=== PATIENT | female | born 1995 | race Caucasian/White ===

== ENCOUNTER 2016-08-07 01:00 | Inpatient (IN) | payer BC ==
[2016-08-07] MEDS: ELECTROLYTE-148 SOLN 1,000 ML IV SCH ×3 (02:00→15:00)
--- NOTE | 2016-08-07 02:17 | HP ---
Past Medical History - Primary Care Physician PCP:: Chelo Ortiz - Admission Chief Complaint: 21 yo @ 39wks with +LOF, clear at 12:30am, +FM, -VB, +ctx History Source: Patient Limitations to Obtaining History: No Limitations - Past Medical History ...: 2 ...Para: 0 ...Term: 0 ...: 0 ...Spon : 0 ...Induced : 0 ...LMP: 11/08/15 ... Weeks Gestation by Dates: 39 ...EDC by Dates: 08/14/16 - Past Surgical History Past Surgical History: Yes: None Hx Myomectomy: No Hx Transabdominal Cerclage: No - Smoking History Smoking history: Never smoked Have you smoked in the past 12 months: No - Alcohol/Substance Use Hx Alcohol Use: No History of Substance Use: reports: None - Social History Usual Living Arrangement: Yes: With Spouse History of Recent Travel: No Home Medications - Allergies Allergies/Adverse Reactions: Allergies Allergy/AdvReac Type Severity Reaction Status Date / Time No Known Allergies Allergy Verified 08/07/16 03:51 - Home Medications Home Medications: Ambulatory Orders One Tablet 1 tab PO DAILY 08/07/16 Review of Systems - Review of Systems Constitutional: reports: No Symptoms Neck: reports: No Symptoms Cardiovascular: reports: No Symptoms Respiratory: reports: No Symptoms Gastrointestinal: reports: No Symptoms Genitourinary: reports: No Symptoms Breasts: reports: No Symptoms Reported Musculoskeletal: reports: No Symptoms Integumentary: reports: No Symptoms Neurological: reports: No Symptoms Endocrine: reports: No Symptoms Hematology/Lymphatic: reports: No Symptoms Psychiatric: reports: No Symptoms Pain Intensity: 4 Physical Exam - Maternity Vital Signs: Vital Signs Temperature 98.4 F 08/07/16 01:00 Pulse Rate 92 H 08/07/16 01:00 Respiratory Rate 20 08/07/16 01:00 Blood Pressure 117/71 08/07/16 01:00 O2 Sat by Pulse Oximetry (%) Constitutional: Yes: Well Nourished Neck: Yes: WNL Cardiovascular: Yes: WNL Lungs: Clear to auscultation Breast(s): Yes: WNL - Abdominal Exam/OB Fundal Height: 37 Number of Fetuses: Single Presentation: Vertex Contractions: Yes Regularity: Regular Intensity: Mild Monitor Mode: External Heart Rate (range): 130 Heart Rate Location: [facility] Category: I Accelerations: Uniform Decelerations: None - Vaginal Exam/OB Vaginal Bleediing: No Speculum Exam: No Dilatation (cm): 1-2 Effacement (%): 50% Amniotic Membrane Status: Ruptured Nitrazine Test: Positive Amniotic Fluid: Yes: Clear Presentation: Vertex/Position Station: -3 - Physical Exam Musculoskeletal: Yes: WNL Extremities: Yes: WNL Edema: No Integumentary: Yes: WNL ...Motor Strength: WNL Psychiatric: Yes: WNL Assessment/Plan 21yo P0 @ 39wks PROM in latent labor MF status reasuring Admit to L&D Labs, Pain management as needed Start Pitocin induction
[2016-08-07 02:56] LABS: BASOPHIL 0.3 % (0-2.0); EOSINOPHIL 1.1 % (0-4.5); MCHC 34.6 g/dl (32.0-36.0); MEAN CELL VOLUME 92.7 fl (80-96); MEAN PLT VOLUME 8.8 fl (7.5-11.1); NEUTROPHILS 73.6 % (42.8-82.8); PLATELET COUNT 196 K/MM3 (134-434); RDW 12.8 % (11.6-15.6); WHITE BLOOD COUNT 13.6 K/mm3 (4.0-10.0)
[2016-08-07 03:01] VITALS: BMI 26.6
[2016-08-07 03:10] LABS: INR 0.92 (0.82-1.09); PROTHROMBIN TIME (PATIENT) 10.1 SEC (9.98-11.88)
[2016-08-07 03:12] LABS: ACTIVATED PTT 25.8 SECONDS (26.9-34.4)
[2016-08-07 03:17] LABS: CALCIUM 8.6 mg/dL (8.5-10.1); CREATININE 0.4 mg/dL (0.55-1.02)
[2016-08-07] MEDS ORDERED: OXYTOCIN 15 UNITS/ LR 250 ML 250 ML IVPB SCH (03:30)
[2016-08-07] MEDS ORDERED: BUTORPHANOL TARTRATE 1 MG/ML VIAL IVPUSH ONE (05:44)
[2016-08-07] MEDS ORDERED: PROMETHAZINE HCL 25 MG/1 ML VIAL IM ONE (05:44)
[2016-08-07] MEDS ORDERED: TUBERCULIN PPD 5 TU/0.1ML SYRINGE (IN PATIENT USE ONLY) ID ONE (09:00)
[2016-08-07] MEDS ORDERED: FENTANYL/BUPIVACAINE/NS/PF - PCEA - 50 ML DISP.SYRIN EP SCH (13:45)
--- NOTE | 2016-08-07 13:45 | PN ---
Progress Note, Labor Vaginal Exam #1 Labor Exam Date: 08/07/16 Labor Exam Time: 12:00 Heart Rate (range): 130 mod varriability, + acels, no decels Dilatation: 3 Effacement (%): 60 Amniotic Membrane Status: Ruptured Presentation: Vertex/Position Station: -2 Remarks: 21 yo P0 n@ 39 wks with PROM IOL on 5mU/min of Pitocin desiring Epidural, requested MF status reassuring Afibrile continue IOL
--- NOTE | 2016-08-07 19:20 | PN ---
Progress Note, Labor Vaginal Exam #2 Labor Exam Date: 08/07/16 Labor Exam Time: 06:45 Heart Rate (range): 130' mod varriability, + accels, -decels Dilatation: 3-4 cm Effacement (%): 80% Amniotic Membrane Status: Ruptured (18hr) Presentation: Vertex/Position Station: +1 Remarks: 21yo P0 @ 39wks with prolonged PROM desiring Top off Antibiotic prophylaxis as per hospital policy MF status reassuring, Afibrile cont Pitocin induction
[2016-08-07] MEDS ORDERED: AMPICILLIN - 2 GM in SODIUM CHLORIDE 100 ML IVPB ONE (20:19)
--- NOTE | 2016-08-07 22:20 | PN ---
Progress Note, Labor Vaginal Exam #3 Labor Exam Date: 08/07/16 Labor Exam Time: 22:00 Heart Rate (range): 130's, + scalp stimulation, + acells Dilatation: 5-6cm Effacement (%): 90% Amniotic Membrane Status: Ruptured Presentation: Vertex/Position Station: 0 Remarks: 21yo P0 @ 39wks PROM IOL now in labor Category 1 HR Comfortable with epidural adequate labor progress currently cont monitoring
[2016-08-08] MEDS ORDERED: AMPICILLIN - 1 GM in SODIUM CHLORIDE 100 ML IVPB SCH (00:19)
--- NOTE | 2016-08-08 00:37 | PN ---
Delivery - Delivery Vaginal Delivery: No Problems Type of Anesthesia: Epidural Episiotomy/Laceration: None EBL (cc): 300 Delivery, Single - Stages of Labor Date 1st Stage Initiatied: 08/08/16 Time 1st Stage Initiated: 18:35 Date 2nd Stage Initiated: 08/08/16 Time 2nd Stage Initiated: 23:40 Date of Delivery: 08/08/16 Time of Delivery: 00:16 Date Placenta Delivered: 08/08/16 Time Placenta Delivered: 00:20 Placenta: Yes: Spontaneous - Condition of Infant Nail Setter/International Logistics Manager Present: No Gender: Male Position: Left, OA - 1 Minute Total Score: 6 5 Minutes Total Score: 9 - Feeding Plan Initial Plan: Elected not to breastfeed exclusively throughout hospitalization Benefits of Exclusively reinforced: Yes Remarks - Remarks Remarks: Uncomplicated Head and shoulder delivery
[2016-08-08] MEDS ORDERED: WITCH HAZEL 50% (TUCKS) 40 PAD/JAR PAD TP PRN (00:59)
[2016-08-08] MEDS ORDERED: METHYLERGONOVINE MALEATE 0.2 MG/1 ML AMP IM PRN (00:59)
[2016-08-08] MEDS ORDERED: ACETAMINOPHEN 325 MG TABLET (FP) PO PRN (00:59)
[2016-08-08] MEDS ORDERED: BENZOCAINE 20% 57 GM BOTTLE TP PRN (00:59)
[2016-08-08] MEDS ORDERED: BENZOCAINE 28 GM HEMORRHOIDAL OINTMENT TP PRN (00:59)
[2016-08-08] MEDS ORDERED: BISACODYL 10 MG SUPP.RECT RC PRN (00:59)
[2016-08-08] MEDS ORDERED: IBUPROFEN 600 MG TABLET (FP) PO PRN (00:59)
[2016-08-08] MEDS ORDERED: D5W-LR W/ 20 UNITS OXYTOCIN 1,000 ML IV SCH (01:00)
[2016-08-08 07:03] LABS: BASOPHIL 0.7 % (0-2.0); EOSINOPHIL 0.1 % (0-4.5); MCH 32.3 pg (25.7-33.7); MCHC 34.5 g/dl (32.0-36.0); MEAN CELL VOLUME 93.8 fl (80-96); MEAN PLT VOLUME 8.2 fl (7.5-11.1); NEUTROPHILS 83.5 % (42.8-82.8); PLATELET COUNT 184 K/MM3 (134-434); RDW 12.8 % (11.6-15.6); WHITE BLOOD COUNT 19.1 K/mm3 (4.0-10.0)
[2016-08-08] MEDS ORDERED: oxyCODONE HCL 5 MG TABLET PO ONE (08:15)
[2016-08-08] MEDS: FERROUS SO4 325 MG TABLET (FP) PO SCH ×2 (09:00→21:16)
[2016-08-08] MEDS: PRENATAL VITAMINS W/ FOLIC ACID TABLET (FP) PO SCH (09:00)
[2016-08-08] MEDS: ELECTROLYTE-148 SOLN 1,000 ML IV SCH (19:45)
[2016-08-09 07:21] LABS: BASOPHIL 0.4 % (0-2.0); EOSINOPHIL 2.1 % (0-4.5); MCHC 34.3 g/dl (32.0-36.0); MEAN CELL VOLUME 93.4 fl (80-96); MEAN PLT VOLUME 7.8 fl (7.5-11.1); NEUTROPHILS 76.1 % (42.8-82.8); PLATELET COUNT 179 K/MM3 (134-434); RDW 12.8 % (11.6-15.6); WHITE BLOOD COUNT 12.5 K/mm3 (4.0-10.0)
--- NOTE | 2016-08-09 07:53 | PN ---
Post Progress Note - Subjective Subjective: 21 yo P1 now, s/p , PPD# 1 no complains voiding, ambulating, tolarating PO Type of Delivery: Vital Signs: Vital Signs Temperature 98.3 F 08/09/16 07:30 Pulse Rate 75 08/09/16 07:30 Respiratory Rate 18 08/09/16 07:30 Blood Pressure 105/58 08/09/16 07:30 O2 Sat by Pulse Oximetry (%) 99 08/07/16 23:45 Breast Exam: Yes: Soft Uterus: Yes: Fundus Firm Abdomen/GI: Yes: Abdomen soft Lochia: Yes: Rubra Lochia, amount: Small Extremities: Yes: Calves non-tender Perineum: Yes: Intact Activity: Ambulating - Labs Labs: CBC WBC 12.5 K/mm3 (4.0-10.0) H D 08/09/16 06:45 RBC 3.22 M/mm3 (3.60-5.2) L 08/09/16 06:45 Hgb 10.3 GM/dL (10.7-15.3) L 08/09/16 06:45 Hct 30.1 % (32.4-45.2) L 08/09/16 06:45 MCV 93.4 fl (80-96) 08/09/16 06:45 MCHC 34.3 g/dl (32.0-36.0) 08/09/16 06:45 RDW 12.8 % (11.6-15.6) 08/09/16 06:45 Plt Count 179 K/MM3 (134-434) 08/09/16 06:45 MPV 7.8 fl (7.5-11.1) 08/09/16 06:45 Neutrophils % 76.1 % (42.8-82.8) 08/09/16 06:45 Lymphocytes % 13.4 % (8-40) D 08/09/16 06:45 Monocytes % 8.0 % (3.8-10.2) 08/09/16 06:45 Eosinophils % 2.1 % (0-4.5) D 08/09/16 06:45 Basophils % 0.4 % (0-2.0) 08/09/16 06:45 Assessment/Plan 21yo P 1, s/p VSS, Afibrile doing well Baby circumcised Rh+ Plan to D/C tomorrow
[2016-08-09] MEDS: FERROUS SO4 325 MG TABLET (FP) PO SCH ×2 (09:20→21:56)
[2016-08-09] MEDS: PRENATAL VITAMINS W/ FOLIC ACID TABLET (FP) PO SCH (09:20)
[2016-08-09] MEDS ORDERED: SENNOSIDES/DOCUSATE COMBO (SENNA PLUS) TABLET (UD) PO PRN (22:00)
--- NOTE | 2016-08-10 08:11 | DS ---
Physical Exam-COMMERCIAL RELATIONSHIP MANAGER Vital Signs: Vital Signs Temperature 98.0 F 08/09/16 22:00 Pulse Rate 84 08/09/16 22:00 Respiratory Rate 18 08/09/16 22:00 Blood Pressure 111/68 08/09/16 22:00 O2 Sat by Pulse Oximetry (%) 99 08/07/16 23:45 Constitutional: Yes: Well Nourished, No Distress, Calm Eyes: Yes: WNL, Conjunctiva Clear, EOM Intact HENT: Yes: WNL, Atraumatic, Normocephalic Neck: Yes: WNL, Supple, Trachea Midline Cardiovascular: Yes: WNL, Regular Rate and Rhythm Respiratory: Yes: WNL, Regular, CTA Bilaterally Gastrointestinal: Yes: WNL ...Rectal Exam: Yes: WNL Renal/: Yes: WNL External Genitalia: Yes: Normal ....Post : Yes: Uterus firm, Uterus non-tender, Slight lochia rubra Breast(s): Yes: WNL Musculoskeletal: Yes: WNL Extremities: Yes: WNL Integumentary: Yes: WNL Neurological: Yes: WNL, Alert, Oriented ...Motor Strength: WNL Psychiatric: Yes: WNL, Alert, Oriented Labs: CBC, BMP 08/09/16 06:45 08/07/16 02:20 Delivery - Delivery Vaginal Delivery: No Problems, Spontaneous Type of Anesthesia: Epidural Episiotomy/Laceration: None EBL (cc): 300 Delivery, Single - Stages of Labor Date 1st Stage Initiatied: 08/08/16 Time 1st Stage Initiated: 18:35 Date 2nd Stage Initiated: 08/08/16 Time 2nd Stage Initiated: 23:40 Date of Delivery: 08/08/16 Time of Delivery: 00:16 Time Placenta Delivered: 00:20 Placenta: Yes: Spontaneous - Condition of Infant Cafe Worker/Marketing And Promotions Manager Present: No Gender: Male Weight: 6 lb 13 oz Position: Left, OA Total Hours ROM (Hrs/Mins): 23h 50m - 1 Minute Total Score: 6 5 Minutes Total Score: 9 - Feeding Plan Initial Plan: Elected not to breastfeed exclusively throughout hospitalization Benefits of Exclusively reinforced: Yes Discharge Summary Reason For Visit: LABOR Condition: Good - Instructions Diet, Activity, Other Instructions: regular diet, follow up office 4 weeks Referrals: Chelo Ortiz MD [Staff Physician] - Disposition: HOME - Home Medications Comprehensive Discharge Medication List: Ambulatory Orders One Tablet 1 tab PO DAILY 08/07/16 Ibuprofen [Motrin -] 600 mg PO QID #28 tablet 08/09/16
--- NOTE | 2016-08-10 08:23 | DS ---
Physical Exam-CRITICAL CARE NURSE PRACTITIONER Vital Signs: Vital Signs Temperature 98.0 F 08/09/16 22:00 Pulse Rate 84 08/09/16 22:00 Respiratory Rate 18 08/09/16 22:00 Blood Pressure 111/68 08/09/16 22:00 O2 Sat by Pulse Oximetry (%) 99 08/07/16 23:45 Constitutional: Yes: Well Nourished, No Distress, Calm Eyes: Yes: WNL, Conjunctiva Clear, EOM Intact HENT: Yes: WNL, Atraumatic, Normocephalic Neck: Yes: WNL, Supple, Trachea Midline Cardiovascular: Yes: WNL, Regular Rate and Rhythm Respiratory: Yes: WNL, Regular, CTA Bilaterally Gastrointestinal: Yes: WNL ...Rectal Exam: Yes: WNL Renal/: Yes: WNL External Genitalia: Yes: Normal ....Post : Yes: Uterus firm, Uterus non-tender, Slight lochia rubra Breast(s): Yes: WNL Musculoskeletal: Yes: WNL Extremities: Yes: WNL Integumentary: Yes: WNL Neurological: Yes: WNL, Alert, Oriented ...Motor Strength: WNL Psychiatric: Yes: WNL, Alert, Oriented Labs: CBC, BMP 08/09/16 06:45 08/07/16 02:20 Delivery - Delivery Vaginal Delivery: No Problems, Spontaneous Type of Anesthesia: Epidural Episiotomy/Laceration: None EBL (cc): 300 Delivery, Single - Stages of Labor Date 1st Stage Initiatied: 08/08/16 Time 1st Stage Initiated: 18:35 Date 2nd Stage Initiated: 08/08/16 Time 2nd Stage Initiated: 23:40 Date of Delivery: 08/08/16 Time of Delivery: 00:16 Time Placenta Delivered: 00:20 Placenta: Yes: Spontaneous - Condition of Infant Procedures Tech/Commission Specialist Present: No Gender: Male Weight: 6 lb 13 oz Position: Left, OA Total Hours ROM (Hrs/Mins): 23h 50m - 1 Minute Total Score: 6 5 Minutes Total Score: 9 - Feeding Plan Initial Plan: Elected not to breastfeed exclusively throughout hospitalization Benefits of Exclusively reinforced: Yes Discharge Summary Reason For Visit: LABOR Condition: Good - Instructions Diet, Activity, Other Instructions: regular diet, follow up office 4 weeks Referrals: Chelo Ortiz MD [Staff Physician] - Disposition: HOME - Home Medications Comprehensive Discharge Medication List: Ambulatory Orders One Tablet 1 tab PO DAILY 08/07/16 Ibuprofen [Motrin -] 600 mg PO QID #28 tablet 08/09/16
[2016-08-10 09:09] VITALS: BP 112/71; PULSE 76; TEMP 98.6
[2016-08-10] MEDS: FERROUS SO4 325 MG TABLET (FP) PO SCH (10:29)
[2016-08-10] MEDS: PRENATAL VITAMINS W/ FOLIC ACID TABLET (FP) PO SCH (10:29)
== END 2016-08-10 22:40 | disposition home or self-care (01) | DRG 775 ==
LOC: JDEL 01:00 → JLDR 01:30 → J3W 08-08 01:45
PROVIDERS: ADMIT Obstetrics & Gynecology; ATTEND Obstetrics & Gynecology
PROC: 10E0XZZ Delivery of Products of Conception, External Approach (ICD-10-PCS; principal; 2016-08-08)
DX: O42.92 Full-term premature rupture of membranes, unspecified as to length of time between rupture and onset of labor (principal); Z3A.39 39 weeks gestation of pregnancy; Z37.0 Single live birth
CPT/HCPCS: 36415; 59025; 80048; 85025; 85610; 85730; 86593; 86850; 86900; 86901